=== PATIENT | male | born 1960 | race African-American/Black ===

== ENCOUNTER 2018-07-04 11:26 | Emergency (ER) | payer OTHER ==
[2018-07-04] MEDS ORDERED: HYDROcodone/Acetaminophen 10/325 mg Tablet ONE (12:32)
[2018-07-04] MEDS ORDERED: Ibuprofen 800 MG TAB ONE (12:32)
== END 2018-07-04 12:35 | disposition home or self-care (01) ==
LOC: BURERS 11:26
DX: L02.412 Cutaneous abscess of left axilla (principal); E78.5 Hyperlipidemia, unspecified; I10 Essential (primary) hypertension; J45.909 Unspecified asthma, uncomplicated
CPT/HCPCS: 10060

== ENCOUNTER 2018-07-06 08:56 | Emergency (ER) | payer OTHER | END 2018-07-06 09:20 | disposition home or self-care (01) | LOC: BURERS 08:56 | DX: Z48.817 Encounter for surgical aftercare following surgery on the skin and subcutaneous tissue (principal); E78.5 Hyperlipidemia, unspecified; I10 Essential (primary) hypertension; J45.909 Unspecified asthma, uncomplicated | CPT/HCPCS: 99282 ==

== ENCOUNTER 2022-06-04 09:41 | Emergency (ER) | payer OTHER ==
[2022-06-04] MEDS ORDERED: Dexamethasone 10 MG/ML VIAL ONE (10:51)
== END 2022-06-04 11:00 | disposition home or self-care (01) ==
LOC: BURERS 09:41
DX: M25.552 Pain in left hip (principal); I10 Essential (primary) hypertension; E78.5 Hyperlipidemia, unspecified
CPT/HCPCS: 96372; 99283; J1100